=== PATIENT | female | born 1985 | race Caucasian/White ===

== ENCOUNTER 2018-12-14 11:02 | Emergency (ER) | payer MEDICAID ==
[~2018-12-14] VITALS: Ht 165.1 cm; Wt 98.0 kg
[~2018-12-14 11:02] MED LIST: PROC-8 PO
--- NOTE | 2018-12-14 11:16 | NUR ---
relieving RN for break, pt is being evaluated by Dave MCMILLAN, pt has granados removed on Saturday, started vag "spotting" on , "huge clots and lots of bleeding" on Sat and Sat, PMD referred pt to ER, pt is GCS 15, resp even and unlabored, skin p/w/d
--- NOTE | 2018-12-14 11:22 | NUR ---
report to Funmilayo Carney RN
[2018-12-14 11:45] VITALS: BP 137/92
== END 2018-12-14 11:48 | disposition home or self-care (01) ==
LOC: ER 11:02
DX: N93.9 Abnormal uterine and vaginal bleeding, unspecified (principal); F10.99 Alcohol use, unspecified with unspecified alcohol-induced disorder; F12.90 Cannabis use, unspecified, uncomplicated; Z87.442 Personal history of urinary calculi; Z98.890 Other specified postprocedural states; Z90.89 Acquired absence of other organs; Z79.899 Other long term (current) drug therapy; Y90.9 Presence of alcohol in blood, level not specified
CPT/HCPCS: 99281

== ENCOUNTER 2020-01-29 18:45 | Emergency (ER) | payer MEDICAID ==
[~2020-01-29] VITALS: Ht 165.1 cm; Wt 97.7 kg
[2020-01-29 22:15] VITALS: BP 140/91
== END 2020-01-29 22:10 | disposition home or self-care (01) ==
LOC: ER 18:46
DX: H93.11 Tinnitus, right ear (principal); R51.9 Headache, unspecified; I10 Essential (primary) hypertension; F12.90 Cannabis use, unspecified, uncomplicated; Z87.442 Personal history of urinary calculi; Z90.89 Acquired absence of other organs; Z98.890 Other specified postprocedural states; Z72.89 Other problems related to lifestyle; Z79.899 Other long term (current) drug therapy
CPT/HCPCS: 99281

== ENCOUNTER 2023-03-16 08:07 | Emergency (ER) | payer MEDICAID ==
[~2023-03-16] VITALS: Ht 165.1 cm; Wt 95.6 kg
[2023-03-16] MEDS ORDERED: ketorolac trometh. 30mg/ml inj. IV ONE (09:50)
[2023-03-16 10:29] LABS: BASOPHILS % (AUTO) 0.2 % (0-1); EOSINOPHILS # (AUTO) 0.1 X10'3 (0-0.9); EOSINOPHILS % (AUTO) 0.6 % (0-6); HEMATOCRIT 43.1 % (35.0-45.0); HEMOGLOBIN 14.4 g/dl (12.0-16.0); LYMPHOCYTES # (AUTO) 3.1 X10'3 (1.1-4.8); LYMPHOCYTES % (AUTO) 24.2 % (21-51); MEAN CORPUSCULAR HEMOGLOBIN 29.7 PG (27.0-31.0); MEAN CORPUSCULAR HGB CONC 33.4 g/dL (33.0-36.5); MEAN CORPUSCULAR VOLUME 88.8 FL (78-98); MEAN PLATELET VOLUME 7.9 FL (7.4-10.4); MONOCYTES # (AUTO) 1.2 X10'3 (0-0.9); MONOCYTES % (AUTO) 9.3 % (2-12); NEUTROPHILS # (AUTO) 8.3 X10'3 (1.8-7.7); NEUTROPHILS % (AUTO) 65.7 % (42-75); PLATELET COUNT 318 X10'3 (140-440); RED BLOOD COUNT 4.85 X10'6 (4.20-5.60); RED CELL DISTRIBUTION WIDTH 13.4 % (11.5-14.5); WHITE BLOOD COUNT 12.7 X10'3 (4.5-11.0)
[2023-03-16] MEDS ORDERED: ketorolac tromethamine 15mg/ml inj. IM ONE (10:35)
[2023-03-16 10:54] LABS: ALANINE AMINOTRANSFERASE 20 U/L (12-78); ALBUMIN 3.8 G/DL (3.4-5.0); ALBUMIN/GLOBULIN RATIO 0.8 (1.1-1.5); ALKALINE PHOSPHATASE 75 IU/L (46-116); ANION GAP 7 (8-16); ASPARTATE AMINO TRANSFERASE 7 U/L (10-37); BILIRUBIN,TOTAL 0.3 MG/DL (0.1-1.0); BLOOD UREA NITROGEN 12 MG/DL (7-18); BUN/CREATININE RATIO 15.2 (10.0-20.0); C-REACTIVE PROTEIN 1.32 MG/DL (0.0-0.5); CALCIUM 9.4 MG/DL (8.5-10.1); CHLORIDE 103 MMOL/L (99-107); CREATININE 0.79 MG/DL (0.40-0.90); GLUCOSE 94 MG/DL (70-104); POTASSIUM 4.2 MMOL/L (3.5-5.1); SODIUM 137 MMOL/L (135-145); TOTAL CARBON DIOXIDE 26.8 MMOL/L (24-32); TOTAL PROTEIN 8.3 G/DL (6.4-8.2); eCRCL 87 ML/MIN; eGFR 81 ML/MIN
[2023-03-16 12:10] VITALS: BP 136/85; PULSE 81; RESP 18; TEMP 98.6; O2SAT 98
[2023-03-16] MEDS ORDERED: DOXY100C77 PO (12:18)
--- NOTE | 2023-03-16 22:12 | NUR ---
I have reviewed and agree with all interventions, assessments performed and documented by MAINTENANCE MECHANIC
== END 2023-03-16 22:12 | disposition home or self-care (01) ==
LOC: ER 08:08
DX: M70.31 Other bursitis of elbow, right elbow (principal); Y93.89 Activity, other specified
CPT/HCPCS: 36415; 73080; 80053; 85025; 86140; 93005; 96372; 99285; J1885; 99284

== ENCOUNTER 2023-06-23 01:01 | Emergency (ER) | payer MEDICAID ==
[~2023-06-23] VITALS: Ht 167.6 cm; Wt 100.8 kg
[2023-06-23 01:07] VITALS: BP 142/76; PULSE 98; TEMP 98.2
[2023-06-23 01:33] LABS: BASOPHILS # (AUTO) 0.1 X10'3 (0-0.2); BASOPHILS % (AUTO) 0.5 % (0-1); EOSINOPHILS # (AUTO) 0.2 X10'3 (0-0.9); EOSINOPHILS % (AUTO) 1.8 % (0-6); HEMATOCRIT 40.8 % (35.0-45.0); HEMOGLOBIN 13.4 g/dl (12.0-16.0); LYMPHOCYTES # (AUTO) 3.9 X10'3 (1.1-4.8); LYMPHOCYTES % (AUTO) 28.6 % (21-51); MEAN CORPUSCULAR HEMOGLOBIN 29.1 PG (27.0-31.0); MEAN CORPUSCULAR HGB CONC 32.8 g/dL (33.0-36.5); MEAN CORPUSCULAR VOLUME 88.6 FL (78-98); MEAN PLATELET VOLUME 8.2 FL (7.4-10.4); MONOCYTES # (AUTO) 1.4 X10'3 (0-0.9); MONOCYTES % (AUTO) 10.4 % (2-12); NEUTROPHILS # (AUTO) 7.9 X10'3 (1.8-7.7); NEUTROPHILS % (AUTO) 58.7 % (42-75); PLATELET COUNT 302 X10'3 (140-440); WHITE BLOOD COUNT 13.5 X10'3 (4.5-11.0)
[2023-06-23 01:37] LABS: ALANINE AMINOTRANSFERASE 26 U/L (12-78); ALBUMIN 3.4 G/DL (3.4-5.0); ALBUMIN/GLOBULIN RATIO 0.9 (1.1-1.5); ALKALINE PHOSPHATASE 65 IU/L (46-116); ANION GAP 10 (8-16); ASPARTATE AMINO TRANSFERASE 10 U/L (10-37); BILIRUBIN,TOTAL 0.3 MG/DL (0.1-1.0); BLOOD UREA NITROGEN 13 MG/DL (7-18); BUN/CREATININE RATIO 16.3 (10.0-20.0); CALCIUM 8.1 MG/DL (8.5-10.1); CHLORIDE 107 MMOL/L (99-107); GLUCOSE 92 MG/DL (70-104); POTASSIUM 3.9 MMOL/L (3.5-5.1); SODIUM 143 MMOL/L (135-145); TOTAL CARBON DIOXIDE 25.6 MMOL/L (24-32); eCRCL 86 ML/MIN; eGFR 80 ML/MIN
[2023-06-23 01:44] LABS: PRO BRAIN NATRIURETIC PEPTIDE < 30 PG/ML (0-125)
[2023-06-23] MEDS: aspirin 81mg tab.chew PO ONE (04:14)
[2023-06-23] MEDS: LORazepam 1 MG tablet PO ONE (04:15)
[2023-06-23] MEDS: ibuprofen tablet 400 MG TABLET PO ONE (04:15)
[2023-06-23] MEDS: famotidine 20mg tablet PO ONE (04:15)
[2023-06-23 04:21] LABS: LIPASE 45 U/L (16-77)
[2023-06-23 04:27] LABS: ETHANOL < 10 MG/DL (<10)
[2023-06-23 04:31] LABS: D-DIMER 0.34 MG/L FEU (0-0.50)
[2023-06-23] MEDS ORDERED: ketorolac trometh. 30mg/ml inj. IV ONE ×2 (05:30→06:05)
[2023-06-23] MEDS ORDERED: acetaminophen 325mg tablet PO ONE (05:30)
[2023-06-23] MEDS ORDERED: CYCL-1 PO (06:00)
[2023-06-23] MEDS ORDERED: ACET-812 PO (06:00)
[2023-06-23] MEDS ORDERED: NAPR-56 PO (06:00)
[2023-06-23] MEDS ORDERED: PANT-47 PO (06:00)
[2023-06-23 06:19] VITALS: RESP 16; O2SAT 100
== END 2023-06-23 06:20 | disposition home or self-care (01) ==
LOC: ER 01:02
DX: R07.89 Other chest pain (principal); I10 Essential (primary) hypertension; F17.200 Nicotine dependence, unspecified, uncomplicated
CPT/HCPCS: 36415; 71045; 80053; 80320; 83690; 83880; 84484; 85025; 85379; 93005; 99285